=== PATIENT | female | born 1975 | race Caucasian/White ===

== ENCOUNTER 2020-01-27 04:42 | Day surgery (SDC) | payer OTHER ==
[2020-01-26 15:54] VITALS: BMI 25.0
[2020-01-27] MEDS ORDERED: MIDAZOLAM HCL 2 MG/2 ML SINGLE DOSE VIAL ONE ×3 (07:23→07:35)
[2020-01-27] MEDS ORDERED: PROPOFOL 20 ML ONE ×2 (07:23→08:23)
[2020-01-27] MEDS ORDERED: BUPIVACAINE LIPOSOME/PF (EXPAREL) 266 MG/20 ML VIAL ONE (07:31)
--- NOTE | 2020-01-27 07:47 | HP ---
[facility]ellite [facility] - Chief Complaint Chief Complaint: right knee pain, instability - Past Medical History Allergies/Adverse Reactions: Allergies Allergy/AdvReac Type Severity Reaction Status Date / Time No Known Allergies Allergy Verified 01/26/20 15:46 - Current Medications Current Medications: Home Medications Medication Instructions Recorded NK [No Known Home Medication] 01/26/20 Satellite Physical Exam - Physical Examination Vital Signs: Vital Signs Period Temp Pulse Resp BP Sys/Perez Pulse Ox Last 24 Hr 98.2 F-98.2 F 54-54 - 120-120/65-65 98-98 General Appearance: Well Nourished, Well Developed, Alert & Oriented x3 ENT: Clear Lung: Normal air movement Extremities: Other (right knee- +swelling, + ttp, + ant draw, + angela, + pivot, nvi) Neurological: Intact, Alert, Oriented Satellite Impression/Plan - Impression/Plan Impression: right knee acl rupture Operative Procedure: right knee arthroscopy with ACL reconstruction using graftloink allograft Date to be Performed: 01/27/20
[2020-01-27] MEDS ORDERED: ceFAZolin 2 GRAM PREMIX BAG IVPB ONE (08:26)
[2020-01-27] MEDS ORDERED: DEXAMETHASONE SOD PHOSPHATE 4 MG/1 ML VIAL ONE (08:43)
[2020-01-27] MEDS ORDERED: ceFAZolin SODIUM 1 GM VIAL ONE ×2 (08:43→10:31)
[2020-01-27] MEDS ORDERED: CEFAZOLIN 1 GM in DEXTROSE 5%-WATER - 50 ML IVPB ONE (09:26)
--- NOTE | 2020-01-27 09:29 | OP ---
Operative Note - Note: Operative Date: 01/27/20 ([facility]) Pre-Operative Diagnosis: right knee internal derangement Operation: right knee arthroscopy with PMM, PLM, ACL reconstruction using graftlink allograft Post-Operative Diagnosis: Same as Pre-op Surgeon: Jorge Krueger Bridge Contractor: Dequan Shea Anesthesia: General, Local Specimens Removed: shavings Estimated Blood Loss (mls): 5
[2020-01-27] MEDS ORDERED: ONDANSETRON 4 MG/2 ML VIAL IVPUSH PRN (10:11)
[2020-01-27] MEDS ORDERED: oxyCODONE HCL 5 MG TABLET PO PRN ×2 (10:11)
[2020-01-27] MEDS ORDERED: LACTATED RINGERS SOLUTION 1,000 ML IV SCH (10:15)
[2020-01-27 10:58] VITALS: TEMP 96.8
--- NOTE | 2020-01-27 13:20 | OP ---
DATE OF OPERATION: 01/27/2020 PREOPERATIVE DIAGNOSIS: Right anterior cruciate ligament tear. POSTOPERATIVE DIAGNOSES: Right anterior cruciate ligament tear plus medial and lateral meniscus tears. PROCEDURE: Right anterior cruciate ligament reconstruction with GraftLink and partial medial and lateral meniscectomy. SURGICAL ATTENDING: Jorge Krueger MD GAS ENGINE OPERATOR: DANE Mcginnis ANESTHESIA: Regional and spinal. CLOSURE: Nylon 4-0. COMPLICATIONS: None. CONDITION: To recovery room in stable condition. DESCRIPTION OF OPERATIVE PROCEDURE: Patient taken to the operating room on January 27, 2020. Regional and general anesthesia were administered by the anesthesiologist. IV Kefzol administered prophylactically prior to the case. A well-padded pneumatic tourniquet was placed on the right proximal thigh. Right lower extremity was prepped and draped in the usual sterile fashion. The GraftLink was prepared on the back table with the appropriate markings and sutures to be deployed later in the case. The medial and lateral infrapatellar portals as was the superomedial portal were made with a 15 blade followed by a blunt trocar. Outflow was superomedially, inflow and scope were inferolaterally and working portals were inferomedially. The scope was placed up into the suprapatellar pouch. Pouch was visualized to be clean. The medial and lateral gutters were visualized to be clean. The undersurface of the patella and trochlea were visualized to be intact. With valgus stress on the knee the medial compartment was entered. The medial meniscus was found to have a complex tear of its posterior horn. This was debrided back to smooth stable meniscal tissue using a meniscal biter and arthroscopic shaver. The medial femoral condyle was run and found to be intact as was the medial tibial plateau. In the figure 4 position the lateral compartment was entered. The lateral meniscus was visualized, probed and found to have a complex tear of its posterior horn. This was debrided back to smooth stable meniscal tissue using a meniscal biter and arthroscopic shaver. The lateral femoral condyle was found to be intact as was the lateral tibial plateau. At 90 degrees the ACL was visualized, probed and found to be torn. This was debrided. A notchplasty was then performed gaining sufficient width and height to perform the procedure. Switching the scope to the inferolateral portal for better visualization, the [id number] guide was used to drill a hole from the lateral femoral condyle into the knee in the appropriate position on the posterior aspect of the notch. This was reamed and then retrograded. A flip cutter was used to drill a 10-mm tunnel in the femur. All particulate bone was debrided. Down this tunnel was deployed a FiberStick suture which was delivered out the inferolateral portal for later shuttling purposes. The scope was returned to the inferolateral portal. The tibial guide was then used to drill a guidewire from the anteromedial proximal tibia up into the knee just anterior to the PCL. A flip cutter was used to retrograde drill a 10-mm tunnel. All bone fragments were then removed. A FiberStick was deployed up this tunnel and delivered out the inferomedial portal. Both shuttle sutures were then brought back into the knee and delivered together out the inferomedial portal so as not to have any soft tissue bridge. The inferomedial portal was extended slightly to allow passage of the graft. The GraftLink was then pulled into the knee and pulled up the femur until the femoral button engaged the lateral cortex. The toggle sutures were then used to toggle the graft up into the femoral tunnel with a predetermined depth of 20 mm. The traction sutures were then used to pull the GraftLink down the tibial tunnel. The button was deployed on the anteromedial proximal tibia. Then the toggle sutures were used to tension the graft from that side as well. Direct visualization and direct probing of the graft revealed excellent tension of the graft. Range of motion revealed full extension, full flexion with excellent crossing of the PCL and no impingement on the notch. Sutures were cut flush both on the femoral and the tibial sides. All were then closed using 3-0 nylon. A sterile pressure dressing followed by a knee immobilizer was applied. Patient awakened from anesthesia and transferred to recovery in stable condition. No complication. Estimated blood loss negligible. Sara [id number]
[2020-01-27 19:46] VITALS: BP 110/70; PULSE 60
--- NOTE | 2020-01-29 17:00 | PATH ---
Surgical Pathology Report Patient Name: JEAN MARIE TAMAYO [facility]. Rec. #: [id number] /Age/Gender: 1975 (Age: 44) / F Account: [id number] Location: [facility] SURGICAL Taken: 01/27/2020 Received: 01/27/2020 Reported: 01/29/2020 Physicians: Jorge Kreuger M.D. Specimen(s) Received RIGHT KNEE SHAVINGS Clinical History Tear right ACL Final Diagnosis RIGHT KNEE SHAVINGS: BONE, FIBROCARTILAGINOUS AND SYNOVIAL TISSUE WITH FOCAL SYNOVIAL LINING CELLS HYPERPLASIA. Electronically Signed Jakob Vora M.D. Gross Description Received in formalin, labeled "right knee shavings," is a 5.5 x 4.0 x 1.0 cm. aggregate of porter-yellow soft tissue fragments. A retail service representative portion is submitted in one cassette. /01/27/202001/27/2020
== END 2020-01-27 12:10 | disposition home or self-care (01) ==
LOC: JASU-SURG 04:42
PROVIDERS: ATTEND Orthopaedic Surgery
PROC: 0SBC4ZZ Excision of Right Knee Joint, Percutaneous Endoscopic Approach (ICD-10-PCS; 2020-01-27)
PROC: 0SBC4ZZ Excision of Right Knee Joint, Percutaneous Endoscopic Approach (ICD-10-PCS; 2020-01-27)
PROC: 0MQN4ZZ Repair Right Knee Bursa and Ligament, Percutaneous Endoscopic Approach (ICD-10-PCS; principal; 2020-01-27 08:00)
DX: S83.511A Sprain of anterior cruciate ligament of right knee, initial encounter (principal); S83.241A Other tear of medial meniscus, current injury, right knee, initial encounter; S83.281A Other tear of lateral meniscus, current injury, right knee, initial encounter; X58.XXXA Exposure to other specified factors, initial encounter; Y93.9 Activity, unspecified; Y92.9 Unspecified place or not applicable
CPT/HCPCS: 88304-TC; 94760; 97116-GP